=== PATIENT | female | born 1970 | race Caucasian/White ===

== ENCOUNTER 2022-02-25 05:46 | Inpatient (IN) | payer MEDICAID ==
[~2022-02-25] VITALS: Ht 160 cm; Wt 77.0 kg
[2022-02-25] MEDS ORDERED: MORPHINE SULFATE 4 MG/ML SYR/VIAL IV ONE (06:45)
[2022-02-25] MEDS ORDERED: ONDANSETRON HCL 4 MG/2 ML VIAL IV ONE (06:45)
[2022-02-25] MEDS ORDERED: PANTOPRAZOLE 40 MG/10 ML VIAL INJ IV ONE (06:45)
[2022-02-25] MEDS ORDERED: SODIUM CHLORIDE 0.9% 1,000 ML IVB ONE (06:45)
[2022-02-25 06:57] LABS: Urine Bacteria FEW /hpf (None Seen); Urine Blood Negative /uL (Negative); Urine Specific Gravity 1.006 (1.001-1.035); Urine WBC 2 /hpf (0 - 5)
[2022-02-25 07:11] LABS: BUN/Creatinine Ratio 8.4; Calcium 8.2 mg/dL (8.5-10.1); Magnesium 2.1 mg/dL (1.6-2.6); Potassium 3.5 mmol/L (3.5-5.1)
[2022-02-25 07:13] LABS: Bilirubin, Total 0.1 mg/dL (0.2-1.0); Total Protein 6.8 g/dL (6.4-8.2)
[2022-02-25 07:22] LABS: Basophils # (auto) 0 10 ^3/uL (0-0.2); Basophils % (auto) 0.2 % (0.0-2.0); Eosinophils # (auto) 0.2 10 ^3/uL (0-0.8); Eosinophils % (auto) 2.6 % (0.0-7.0); Hematocrit 41.8 % (36.0-46.0); Hemoglobin 14.4 g/dL (12.2-16.2); Lymphocytes # (auto) 0.9 10 ^3/uL (0.4-5.4); Lymphocytes % (auto) 12.3 % (10.0-50.0); Mean Corpuscular Hemoglobin 31.2 pg (28.0-32.0); Mean Corpuscular Hgb Conc. 34.4 g/dL (32.0-36.0); Mean Corpuscular Volume 90.7 fL (80.0-100.0); Monocytes # (auto) 0.8 10 ^3/uL (0-1.3); Monocytes % (auto) 11.1 % (0.0-12.0); Neutrophils # (auto) 5.2 10 ^3/uL (1.6-8.6); Neutrophils % (auto) 73.8 % (37.0-80.0); Nucleated Red Blood Cells % 0.1 %; Red Blood Cells 4.61 10^6/uL (4.0-5.20); Red Cell Distribution Width 13.5 % (11.8-14.3)
[2022-02-25] MEDS ORDERED: SODIUM CHLORIDE 0.9% 1,000 ML IV ONE (09:30)
[2022-02-25] MEDS ORDERED: metroNIDAZOLE 500MG/100ML 100 ML IV ONE (09:30)
[2022-02-25] MEDS ORDERED: MORPHINE SULFATE INJ 2 MG/ml SYRG IV PRN (09:30)
[2022-02-25] MEDS ORDERED: ONDANSETRON HCL 4 MG/2 ML VIAL IV PRN (09:30)
[2022-02-25] MEDS: NICOTINE 14 MG/24HR TOPICAL PATCH TD SCH (10:30)
[2022-02-25] MEDS: metroNIDAZOLE 500MG/100ML 100 ML IV SCH ×2 (14:30→22:37)
[2022-02-25 16:00] VITALS: BP 107/59
[2022-02-25 22:00] VITALS: BP 140/98
[2022-02-26 05:00] VITALS: BP 87/45
[2022-02-26 05:45] LABS: Basophils # (auto) 0 10 ^3/uL (0-0.2); Basophils % (auto) 0.4 % (0.0-2.0); Eosinophils # (auto) 0.1 10 ^3/uL (0-0.8); Eosinophils % (auto) 2.9 % (0.0-7.0); Hematocrit 36.5 % (36.0-46.0); Hemoglobin 12.4 g/dL (12.2-16.2); Lymphocytes # (auto) 1.8 10 ^3/uL (0.4-5.4); Lymphocytes % (auto) 42.7 % (10.0-50.0); Mean Corpuscular Hemoglobin 30.9 pg (28.0-32.0); Mean Corpuscular Volume 90.9 fL (80.0-100.0); Monocytes # (auto) 0.6 10 ^3/uL (0-1.3); Monocytes % (auto) 13.3 % (0.0-12.0); Neutrophils # (auto) 1.7 10 ^3/uL (1.6-8.6); Neutrophils % (auto) 40.7 % (37.0-80.0); Nucleated Red Blood Cells % 0.1 %; Red Blood Cells 4.01 10^6/uL (4.0-5.20); Red Cell Distribution Width 13.4 % (11.8-14.3); White Blood Cell 4.3 10^3/uL (4.4-10.8)
[2022-02-26] MEDS: metroNIDAZOLE 500MG/100ML 100 ML IV SCH ×3 (05:57→21:23)
[2022-02-26 05:59] LABS: Albumin 2.4 g/dL (3.4-5.0); Calcium 8.1 mg/dL (8.5-10.1)
[2022-02-26 06:01] LABS: Potassium 3.4 mmol/L (3.5-5.1)
[2022-02-26 06:04] LABS: BUN/Creatinine Ratio 12.3; Bilirubin, Total 0.3 mg/dL (0.2-1.0); Total Protein 5.7 g/dL (6.4-8.2)
[2022-02-26 07:50] VITALS: BP 93/53
[2022-02-26] MEDS: NICOTINE 14 MG/24HR TOPICAL PATCH TD SCH (10:00)
[2022-02-26] MEDS: PANTOPRAZOLE 40 MG/10 ML VIAL INJ IV SCH (11:37)
[2022-02-26] MEDS ORDERED: cefTRIAXone 1GM/50ML D5W 50 ML IV ONE (12:15)
[2022-02-26] MEDS ORDERED: OMNIPAQUE ORAL SOLN 500ml 12mg/ml PO ONE (14:20)
[2022-02-26 17:15] VITALS: BP 107/62
[2022-02-26 22:00] VITALS: BP 95/75
[2022-02-27 05:00] VITALS: BP 105/62
[2022-02-27] MEDS: metroNIDAZOLE 500MG/100ML 100 ML IV SCH ×3 (06:06→21:33)
[2022-02-27 09:00] VITALS: BP 115/73
[2022-02-27] MEDS: PANTOPRAZOLE 40 MG/10 ML VIAL INJ IV SCH (09:16)
[2022-02-27] MEDS: cefTRIAXone 1GM/50ML D5W 50 ML IV SCH (09:16)
[2022-02-27] MEDS: NICOTINE 14 MG/24HR TOPICAL PATCH TD SCH (09:26)
[2022-02-27 12:55] VITALS: BP 104/63
[2022-02-27 16:50] VITALS: BP 120/69
[2022-02-27 22:43] VITALS: BP 99/48
[2022-02-28 05:00] VITALS: BP 92/41
[2022-02-28] MEDS: metroNIDAZOLE 500MG/100ML 100 ML IV SCH ×2 (06:11→14:00)
[2022-02-28 09:00] VITALS: BP 118/53
[2022-02-28] MEDS: cefTRIAXone 1GM/50ML D5W 50 ML IV SCH (09:07)
[2022-02-28] MEDS: PANTOPRAZOLE 40 MG/10 ML VIAL INJ IV SCH (09:07)
[2022-02-28] MEDS: NICOTINE 14 MG/24HR TOPICAL PATCH TD SCH (09:08)
[2022-02-28] MEDS ORDERED: METR500T PO (12:25)
[2022-02-28] MEDS ORDERED: LEVO500T31 PO (12:25)
[2022-02-28] MEDS ORDERED: PANT40T PO (12:25)
[2022-02-28 12:50] VITALS: BP 91/69
[2022-02-28 13:21] VITALS: BP 91/69
== END 2022-02-28 14:45 | disposition home or self-care (01) | DRG 254 ==
LOC: ER 05:46 → OVERFLOW 09:24 → WEST WING 15:58
PROVIDERS: ADMIT Registered Nurse; ATTEND Family Medicine
DX: I88.0 Nonspecific mesenteric lymphadenitis (principal); F17.210 Nicotine dependence, cigarettes, uncomplicated; J45.909 Unspecified asthma, uncomplicated; K29.70 Gastritis, unspecified, without bleeding; N18.2 Chronic kidney disease, stage 2 (mild); R19.7 Diarrhea, unspecified; Z98.51 Tubal ligation status; Z82.49 Family history of ischemic heart disease and other diseases of the circulatory system; Z83.3 Family history of diabetes mellitus
CPT/HCPCS: 36415; 74176; 76705; 80053; 81001; 82150; 83605; 83690; 83735; 84484; 85025; 87040; 93005; 96361; 96365; 96366; 96375; C9113; G0378; J0696; J2405; J3490

== ENCOUNTER 2023-11-27 14:58 | Emergency (ER) | payer MEDICAID ==
[~2023-11-27] VITALS: Ht 160 cm; Wt 73.7 kg
[~2023-11-27 14:58] MED LIST: LEVO500T31 PO; METR500T PO; PANT40T PO
[2023-11-27 15:13] VITALS: BP 128/65; RESP 18; O2SAT 99
[2023-11-27 15:25] LABS: Basophils # (auto) 0 10 ^3/uL (0-0.2); Basophils % (auto) 0.4 % (0.0-2.0); Eosinophils # (auto) 0.1 10 ^3/uL (0-0.8); Eosinophils % (auto) 0.7 % (0.0-7.0); Hematocrit 38.6 % (36.0-46.0); Hemoglobin 12.6 g/dL (12.2-16.2); Lymphocytes # (auto) 2.5 10 ^3/uL (0.4-5.4); Lymphocytes % (auto) 20.9 % (10.0-50.0); Mean Corpuscular Hemoglobin 29.7 pg (28.0-32.0); Mean Corpuscular Hgb Conc. 32.6 g/dL (32.0-36.0); Mean Corpuscular Volume 91.1 fL (80.0-100.0); Monocytes # (auto) 1.1 10 ^3/uL (0-1.3); Monocytes % (auto) 9.6 % (0.0-12.0); Neutrophils % (auto) 68.4 % (37.0-80.0); Red Blood Cells 4.24 10^6/uL (4.0-5.20); Red Cell Distribution Width 13.5 % (11.8-14.3); White Blood Cell 11.8 10^3/uL (4.4-10.8)
[2023-11-27 15:41] LABS: INR 0.95 (0.9-1.15); Partial Thromboplastin Time 28.2 SEC (24.5-34.5)
[2023-11-27 15:45] LABS: Alanine Aminotransferase 36 U/L (7-40); Albumin 3.8 g/dL (3.2-4.8); Alkaline Phosphatase 93 U/L (46-116); Anion Gap 4 (5-15); Aspartate Aminotransferase 27 U/L (13-40); BUN/Creatinine Ratio 14.5 (10.0-20.0); Bilirubin, Total 0.3 mg/dL (0.2-1.0); Blood Urea Nitrogen 10 mg/dL (9-23); Calcium 9.3 mg/dL (8.5-10.1); Carbon Dioxide 31 mmol/L (20-30); Chloride 103 mmol/L (98-107); Glucose 107 mg/dL (74-106); Potassium 3.8 mmol/L (3.5-5.1); Sodium 138 mmol/L (136-145)
[2023-11-27] MEDS ORDERED: IBU600T PO (16:07)
[2023-11-27 16:11] VITALS: PULSE 90
[2023-11-27] MEDS ORDERED: LEVO500T91 PO (17:13)
[2023-11-27] MEDS: ASPirin 325 MG TAB PO ONE (23:23)
[2023-11-27] MEDS: cefTRIAXone SOD 1,000 MG VL IM ONE (23:23)
== END 2023-11-27 23:31 | disposition home or self-care (01) ==
LOC: ER 14:58
DX: R07.89 Other chest pain (principal); J45.909 Unspecified asthma, uncomplicated; F17.210 Nicotine dependence, cigarettes, uncomplicated; Z79.1 Long term (current) use of non-steroidal anti-inflammatories (NSAID); Z79.2 Long term (current) use of antibiotics; Z79.899 Other long term (current) drug therapy
CPT/HCPCS: 36415; 71045; 80053; 84484; 85025; 85610; 85730; 93005

== ENCOUNTER 2025-09-29 00:04 | Emergency (ER) | payer MEDICAID ==
[~2025-09-29] VITALS: Ht 160 cm; Wt 76.4 kg
[~2025-09-29 00:04] MED LIST changes: +IBU600T PO; +LEVO500T91 PO
--- NOTE | 2025-09-29 00:29 | ED.PDOC ---
History of Present Illness HPI Comments 54 y/o F with c/c of cough and congestion x4 days. Associated sinus pressure. Congestion localized to chest region. Chief Complaint: Cough Time Seen by MD: 00:25 Reviewed Notes: Nurses Notes, Medications, Allergies Allergies: Coded Allergies: NO KNOWN ALLERGIES (Unverified , 02/25/22) Home Meds Active Scripts Levofloxacin Hemihydrate (LEVOFLOXACIN) 500 Mg Tab, 1 TAB PO DAILY for 7 Days, #7 TAB Prov:SANDIP JIMENEZ 09/29/25 Levofloxacin Hemihydrate (LEVOFLOXACIN) 500 Mg Tab, 1 TAB PO DAILY for 7 Days, #7 TAB Prov:STEVAN SANTANA MD 11/27/23 Ibuprofen Micronized (MOTRIN TABLET) 600 Mg Tb, 600 MG PO TID PRN for 7 Days, #21 TAB *Black box warning-NSAIDS can increase risk of ID & hypertension, GI irritation, ulceration, bleed, perferation. Do not use post cardiac surgery. Use short duration/lowest effective dose. 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 ACTIONSCRIPT DEVELOPER History Family History Family History: Family hx of DM, Family hx of Cancer, Family hx of HTN Social History Smoker: Cigarettes Alcohol: Denies ETOH Use Drugs: Denies Drug Use Lives In: Home All Other Systems: Reviewed and Negative (As per HPI) Physical Exam General Appearance: No Apparent Distress, Normal HEENT: Pharyngeal Erythema, Sinuses (Moderate tenderness palpated over maxillary sinus bilateral), TMs Normal Neck: Full Range of Motion, Non-Tender, Normal, Normal Inspection Respiratory: No Respiratory Distress, Normal Breath Sounds, Rhonchi Cardiovascular: No Edema, No JVD, No Murmur, No Gallop, Normal Peripheral Pulses, Regular Rate/Rhythm Breast Exam: Deferred Gastrointestinal: No Organomegaly, Non Tender, No Pulsatile Mass, Normal Bowel Sounds, Soft Genitalia: Deferred Pelvic: Deferred Rectal: Deferred Extremities: Normal range of motion, Non-tender, No pedal edema Musculoskeletal : Apperance: Normal Neurologic: Alert, No Motor Deficits, Normal Affect, Normal Mood, No Sensory Deficits Cerebellar Function: Normal Reflexes: NOT DONE Skin: Dry, Normal Color, Warm Lymphatic: No Adenopathy Was a procedure done? Was a procedure done?: No Differential Dx Considerations may include: URI, PNA, viral syndrome, among others X-Ray, Labs, Meds, VS Vital Signs Date Time Temp Pulse Resp B/P (MAP) Pulse Ox O2 Delivery O2 Flow Rate FiO2 09/29/25 00:10 98.2 100 18 129/78 95 98.2 X-Ray, Labs, Meds, VS Comment Likely bacterial. Script trial of antibiotics. Advised to take medication as prescribed side effects discussed. Advised to rest increase p.o. fluids with el ectrolytes. Warm compresses to the sinus maxillary area several times a day. Follow up with your PCP in three days if no improvement. ER return precautions given patient indicates understanding and agrees with discharge plan of care. Time of 1ST Reevaluation: 00:25 Reevaluation 1ST: Unchanged Time of 2ND Reevaluation: : Reevaluation 2ND: Improved Patient Education/Counseling: Diagnosis, Treatment Family Education/Counseling: No Family Present SEPSIS Sepsis Screen Date sepsis recognized/suspect: Sep 29, 2025 Time Sepsis recognized/suspect: 0013 Recent Procedure: No On Antibiotic Therapy: No Respiratory Rate >20: No Heart Rate >90: No Temp<36 C (96.8 F) or >38.3 C: No SBP <90 or MAP <65 mmHG: No New Acute Mental Status Change: No Is the patient on CPAP, BIPAP,: No Physician Orders Chest Two Views Routine (09/29/25 00:33) Vital Signs Date Time Temp Pulse Resp B/P (MAP) Pulse Ox O2 Delivery O2 Flow Rate FiO2 09/29/25 00:10 98.2 100 18 129/78 95 98.2 Departure 1 Departure Time of Disposition: : Impression: Primary Impression: Acute maxillary sinusitis, unspecified Qualified Codes: J01.00 - Acute maxillary sinusitis, unspecified Disposition: HOME / SELF CARE / HOMELESS Condition: Stable e-Prescriptions Levofloxacin Hemihydrate (LEVOFLOXACIN) 500 Mg Tab 1 TAB PO DAILY for 7 Days, #7 TAB Prov: SANDIP JIMENEZ 09/29/25 Discharged With: Self Critical Care Note Critical Care Time?: No Stability Stability form required: No Heart Score Heart Score: Heart Score Response (Comments) Value History N/A 0 EKG N/A 0 Age N/A 0 Risk Factors N/A 0 Troponin N/A 0 Total 0 I personally scribed for ER ([email or web address]) on 09/29/25 at 00:29. Electronically submitted by Jose R Cheng [email or web address]). ER Sep 29, 2025 00:29 SANDIP JIMENEZ Sep 29, 2025 02:24
--- NOTE | 2025-09-29 01:14 | DVH ---
CHEST RADIOGRAPH INDICATION: sob TECHNIQUE: Frontal and lateral view of the chest was obtained COMPARISON: XY CHEST PORTABLE on DOS: 11/27/23, XR RIBS RT on DOS: 10/16/22 FINDINGS: Lines and Tubes: None Lungs: Clear Pleura: No effusion. No pneumothorax. Cardiomediastinal contours: Unremarkable Bones: Unremarkable IMPRESSION: 1. No evidence of acute disease.
[2025-09-29] MEDS ORDERED: LEVO500T91 PO (02:24)
[2025-09-29 02:41] VITALS: BP 145/75; PULSE 93; RESP 19; TEMP 98.3; O2SAT 97
== END 2025-09-29 02:51 | disposition home or self-care (01) ==
LOC: ER 00:04
DX: J01.00 Acute maxillary sinusitis, unspecified (principal); F17.210 Nicotine dependence, cigarettes, uncomplicated; J45.909 Unspecified asthma, uncomplicated; Z79.899 Other long term (current) drug therapy; Z98.51 Tubal ligation status
CPT/HCPCS: 71046